=== PATIENT | male | born 1985 | race Two or more races ===

== ENCOUNTER 2017-12-18 01:46 | Emergency (ER) | payer SELFPAY ==
[2017-12-18] MEDS ORDERED: HYDROmorphone 0.5 MG/0.5 ML SYRINGE IVPUSH ONE (02:05)
[2017-12-18] MEDS ORDERED: Metoclopramide 10 MG/2 ML SDV IVPUSH ONE (02:05)
--- NOTE | 2017-12-18 02:10 | EDM.PDOC ---
ED HPI GENERAL MEDICAL PROBLEM - General Chief Complaint: Flank Pain Stated Complaint: LOWER ABDOMINAL PAIN POSSIBLE KIDNEY STONES Time Seen by Provider: 12/18/17 02:05 Source of Information: Reports: Patient, Family (friend) History Limitations: Reports: No Limitations - History of Present Illness INITIAL COMMENTS - FREE TEXT/NARRATIVE: 32-year-old male presents to the ED with acute onset of severe left flank pain radiating down to the left groin. and mild intermittent left-sided abdominal pain yesterday starting about 1800 hrs. Awoke at midnight with severe pain. Associated nausea without vomiting. Associated continued feeling of need to void and defecate. Pacing the floor and sitting on the toilet for the last 2 hours without any relief. He has no history of renal colic in the past. No previous abdominal surgery. Apparently has a strong family history of renal lithiasis. of note he is of [place] descent Onset: Sudden Onset Date: 12/18/17 Onset Time: 00:00 Duration: Hour(s): Location: Reports: Abdomen (Left flank rating into the left hemiabdomen down towards the groin and testicle. Hemiabdomen.), Back Quality: Reports: Ache, Other Severity: Severe (Constant pain with intermittent worsening of the pain I colicky component) Improves with: Reports: None ( from a 9 out of 10) Worsens with: Reports: None Context: Denies: Activity, Exercise, Lifting, Sick Contact, Trauma, Other Associated Symptoms: Reports: Loss of Appetite, Nausea/Vomiting (Nausea without vomiting). Denies: No Other Symptoms, Confusion, Chest Pain, Cough, cough w sputum, Diaphoresis, Fever/Chills, Malaise, Rash, Seizure, Shortness of Breath, Syncope Treatments CESSATION SYSTEMS OUTREACH SPECIALIST: Reports: Other (see below) (9.) Left Lower Flank Pain Score (Numeric/FACES): 8 - Related Data Allergies Allergy/AdvReac Type Severity Reaction Status Date / Time No Known Allergies Allergy Verified 12/18/17 01:57 Home Meds: Home Meds . [No Known Home Meds] 12/18/17 [History] Past Medical History - Past Surgical History Head Surgeries/Procedures: Reports: None Social & Family History - Living Situation & Occupation Occupation: Employed ED ROS GENERAL - Review of Systems Review Of Systems: See Below Constitutional: Reports: No Symptoms HEENT: Reports: No Symptoms Respiratory: Reports: No Symptoms Cardiovascular: Reports: No Symptoms Endocrine: Reports: No Symptoms GI/Abdominal: Reports: No Symptoms : Reports: No Symptoms Musculoskeletal: Reports: No Symptoms Skin: Reports: No Symptoms Neurological: Reports: No Symptoms Psychiatric: Reports: No Symptoms Hematologic/Lymphatic: Reports: No Symptoms Immunologic: Reports: No Symptoms ED EXAM, RENAL/ - Physical Exam Exam: See Below Exam Limited By: No Limitations General Appearance: Alert, WD/WN, Moderate Distress (He is in obvious pain and discomfort. No position is comfortable.) Eye Exam: Bilateral Eye: Normal Inspection (No jaundice.) Neck: Normal Inspection, Supple, Non-Tender, Full Range of Motion. No: Lymphadenopathy (L), Lymphadenopathy (R) Respiratory/Chest: No Respiratory Distress, Lungs Clear, Normal Breath Sounds, No Accessory Muscle Use, Respiratory Distress (Mild tachypnea at rest due to pain response) Cardiovascular: Normal Peripheral Pulses, Regular Rate, Rhythm, No Edema, No Gallop, No Murmur GI/Abdominal: No Mass, Pelvis Stable, Tender, Abnormal Bowel Sounds (Decreased bowel sounds). No: Guarding, Rigid, Rebound (Mild tenderness left mid hemiabdomen. No rebound or guarding) (Male) Exam: No Hernia Back Exam: Normal Inspection, Full Range of Motion, CVA Tenderness (L). No: CVA Tenderness (R) (Mild), Decreased Range of Motion Extremities: Normal Inspection, Normal Range of Motion, Non-Tender, No Pedal Edema Neurological: Alert, Oriented, CN II-XII Intact, Normal Cognition Psychiatric: Normal Affect Skin Exam: Warm, Dry, Intact, Normal Color, No Rash Course - Vital Signs Last Recorded V/S: Last Vital Signs Temp 35.8 C 12/18/17 01:58 Pulse 80 12/18/17 01:58 Resp 18 12/18/17 01:58 BP 146/108 H 12/18/17 01:58 Pulse Ox 99 12/18/17 01:58 - Orders/Labs/Meds Orders: Active Orders 24 hr Category Date Time Status Abdomen Pelvis wo Cont [CT] Stat Exams 12/18/17 02:06 Taken URINALYSIS W/MICROSCOPIC [UA W/MICROSCOPIC] [URIN] Stat Lab 12/18/17 02:06 Ordered Ketorolac [Toradol] Med 12/18/17 02:15 Active 30 mg IVPUSH ONETIME Sodium Chloride 0.9% [Normal Saline] 1,000 ml Med 12/18/17 02:15 Active IV ASDIRECTED Medication Orders Sodium Chloride (Normal Saline) 1,000 mls @ 150 mls/hr IV ASDIRECTED FLORENTINO Last Admin: 12/18/17 02:28 Dose: 150 mls/hr Ketorolac Tromethamine (Toradol) 30 mg IVPUSH ONETIME FLORENTINO Last Admin: 12/18/17 02:25 Dose: 30 mg Labs: Laboratory Tests 12/18/17 Range/Units 02:06 Urine Color Yellow (Yellow) Urine Appearance Slt cloudy H (Clear) Urine pH 5.5 (5.0-8.0) Ur Specific [place] > or = 1.030 (1.005-1.030) Urine Protein Trace H (Negative) Urine Glucose (UA) Negative (Negative) Urine Ketones Negative (Negative) Urine Occult Blood 3+ H (Negative) Urine Nitrite Negative (Negative) Urine Bilirubin Negative (Negative) Urine Urobilinogen 0.2 (0.2-1.0) Ur Leukocyte Esterase Negative (Negative) Urine RBC >100 H (0-5) /hpf Urine WBC 0-5 (0-5) /hpf Ur Epithelial Cells Not seen (0-5) /hpf Urine Bacteria Few (FEW) /hpf Urine Mucus Not seen (FEW) /hpf Meds: Medications Generic Name Dose Route Start Last Admin Trade Name Freq PRN Reason Stop Dose Admin Sodium Chloride 1,000 mls @ 150 mls/hr 12/18/17 02:15 12/18/17 02:28 Normal Saline IV 150 mls/hr ASDIRECTED FLORENTINO Administration Ketorolac Tromethamine 30 mg 12/18/17 02:15 12/18/17 02:25 Toradol IVPUSH 30 mg ONETIME FLORENTINO Administration Discontinued Medications Generic Name Dose Route Start Last Admin Trade Name Freq PRN Reason Stop Dose Admin Hydromorphone HCl 1 mg 12/18/17 02:05 12/18/17 02:24 Dilaudid IVPUSH 12/18/17 02:06 1 mg ONETIME ONE Administration Metoclopramide HCl 10 mg 12/18/17 02:05 12/18/17 02:26 Reglan IVPUSH 12/18/17 02:06 10 mg ONETIME ONE Administration - Radiology Interpretation Free Text/Narrative:: 32-year-old male presents the ED with acute onset of severe left flank pain rating down to his left groin. No history of renal lithiasis. Clinically he has left renal colic. Awoke around midnight with severe pain. Associated nausea without vomiting. Has a constant need to defecate and feeling of need to void but is unable. Plan IV normal saline at 150 mils per hour. Dilaudid 1 mg IV with Toradol 30 mg IV and Reglan 10 mg IV for pain relief. CT the abdomen per renal protocol to be done and urinalysis if one can be collected. - Re-Assessments/Exams Free Text/Narrative Re-Assessment/Exam: 12/18/17 03:05 CT of the abdomen and pelvis per renal protocol has been completed. It reveals a moderate dilatation of the left renal pelvis and ureter all the way down to the urinary bladder. There is a 1 mm stone that is entered the urinary bladder likely the very distal end of the ureter. His pain is pretty well gone completely. There are no further stones in the left renal parenchyma. There are 2 stones in the right renal parenchyma that may be problematic in the future one is 1 mm and one is 2 mm in size. ZNo other abnormalites are appreciated on abdominal CT. Will be discharged home in the care of his brother. Departure - Departure Time of Disposition: 03:06 Disposition: Home, Self-Care 01 Condition: Fair Clinical Impression: Renal colic on left side - Discharge Information Referrals: PCP,None [Primary Care Provider] - Forms: ED Department Discharge Additional Instructions: Evaluation the emergency room tonight in regards to acute onset of severe pain left flank rating down to the left groin and abdomen. The history is compatible with a kidney stone. Apparently there is a strong family history of kidney stones but you yourself of never experienced renal colic in the past. You're treated with intravenous pain medications and fluids. CT of the abdomen reveals the stone on the left side has just about passed completely into the urinary bladder and will therefore not likely cause any further pain. It is only 1 mm in size. There are no stones in the left kidney tissue at this time. However there are 2 small stones within the tissue of the right kidney that may become problematic in the future if they decide to try and pass. One is 1 mm in size and the other is 2 mm in size. Treatment is to maintain plenty of fluids particularly during the hot months with loss of water to drink to try and keep the calcium from depositing in the kidney tissues. No calcium added diet advise such as Tums or Rolaids antacids or calcium supplements. - My Orders Last 24 Hours: My Active Orders 12/18/17 02:06 Abdomen Pelvis wo Cont [CT] Stat URINALYSIS W/MICROSCOPIC [UA W/MICROSCOPIC] [URIN] Stat 12/18/17 02:15 Ketorolac [Toradol] 30 mg IVPUSH ONETIME Sodium Chloride 0.9% [Normal Saline] 1,000 ml IV ASDIRECTED - Assessment/Plan Last 24 Hours: My Active Orders 12/18/17 02:06 Abdomen Pelvis wo Cont [CT] Stat URINALYSIS W/MICROSCOPIC [UA W/MICROSCOPIC] [URIN] Stat 12/18/17 02:15 Ketorolac [Toradol] 30 mg IVPUSH ONETIME Sodium Chloride 0.9% [Normal Saline] 1,000 ml IV ASDIRECTED
[2017-12-18] MEDS ORDERED: Sodium Chloride 0.9% 1,000 ML IV SCH (02:15)
[2017-12-18] MEDS ORDERED: Ketorolac 30 MG/ML SDV IVPUSH SCH (02:15)
--- NOTE | 2017-12-21 09:26 | CT ---
CT abdomen and pelvis Technique: Multiple axial sections were obtained from above the dome of the diaphragm inferiorly through the pubic symphysis. Intravenous and oral contrast was not utilized. Study has been performed as a ureteral stone protocol. Comparison: No previous CT exam. Findings: 3.5 mm stone noted at the left UVJ causing proximal hydronephrosis. Several minimal nonobstructing stones noted within both kidneys measuring around 1-2 mm. No other abnormal calcifications are seen along the course of the ureters. Visualized lung bases show a small subpleural nodule measuring 4.5 mm. Liver shows fatty infiltration. No focal abnormality is seen within the liver. Spleen appears within normal limits. Adrenal glands show no nodule. Pancreas is within normal limits. Gallbladder contains no calcified gallstones. Aorta shows no aneurysmal dilatation. Appendix is seen which is normal. No pelvic mass or adenopathy is seen. No free fluid or inflammatory changes are seen. Bone window settings were reviewed which show slight diffuse posterior disc bulge at L5-S1 with mild posterior disc space narrowing. Impression: 1. Obstructing 3.5 mm ureteral stone located at the left UVJ. 2. Small nonobstructing stones within both kidneys measuring around 1-2 mm. 3. Fatty infiltration within the liver. 4. Other incidental findings. Diagnostic code #3 I agree with preliminary report from [facility], finalized at 12/18/17, 4:28 AM Central Time
== END 2017-12-18 03:16 | disposition home or self-care (01) ==
LOC: JD.ED 01:46
DX: N23 Unspecified renal colic (principal)
CPT/HCPCS: 74176; 81001; 96361; 96374; 96375; 99284; J1170; J1885; J2765; J7040